=== PATIENT | female | born 1955 | race Caucasian/White ===

== ENCOUNTER → 2017-04-08 | Outpatient (CLI) | payer MEDICARE, MEDICAID ==
[~2017-04-08] MED LIST: AMBIEN10 M1 PO; AMITRIPTYLINE25 MG PO; ATIVAN0.5 MG PO; ATIVAN1 MG PO; BACTRIM DS 8001 TA1 PO; CARAFATE1 G1 PO; CYCLOBENZAPRINE10 MG PO; CYMBALTA60 MG PO; EFFEXOR XR150 M1 PO; EFFEXOR XR75 M1 PO; FENTORA BC; GABAPENTIN600 MG PO; KEFLEX500 MG PO; KLONOPIN1 M1 PO; LASIX20 MG PO; LEXAPRO20 MG PO; MEDROL DOSEPAK4 MG PO; METHADONE10 MG PO; MS CONTIN30 MG PO; PERCOCET 325 MG1 TA2 PO; PERCOCET 325 MG1 TA7 PO; POTASSIUM20 MEQ PO; PRAVASTATIN SOD10 MG PO; PROTONIX TR40 M1 PO; PROTONIX20 MG PO; Phenergan25 MG PO; REGLAN5 MG PO; SEROQUEL50 MG PO; SOMA350 MG PO; TIZANIDINE HCL4 MG PO; TRAMADOL50 MG PO; ZITHROMAX250 MG PO; ZOLOFT50 MG PO
== END | disposition home or self-care (01) ==
LOC: MAMMO 11:42
DX: Z12.31 Encounter for screening mammogram for malignant neoplasm of breast (principal)

== ENCOUNTER → 2021-10-25 | Outpatient (CLI) | payer OTHER, MEDICAID | END | disposition home or self-care (01) | LOC: COVID19 15:08 | PROVIDERS: ATTEND Family Medicine | DX: Z20.822 Contact with and (suspected) exposure to COVID-19 (principal) ==

== ENCOUNTER 2022-09-03 00:42 | Emergency (ER) | payer MEDICARE, MEDICAID ==
[~2022-09-03] VITALS: Ht 167.6 cm; Wt 86.2 kg
[2022-09-03] MEDS ORDERED: HYDROCODONE-AC1 EAC1 PO (04:30)
== END 2022-09-03 04:49 | disposition home or self-care (01) ==
LOC: ED 00:42
DX: S82.61XA Displaced fracture of lateral malleolus of right fibula, initial encounter for closed fracture (principal); Z88.1 Allergy status to other antibiotic agents; Z90.49 Acquired absence of other specified parts of digestive tract; Z90.13 Acquired absence of bilateral breasts and nipples; Z90.710 Acquired absence of both cervix and uterus; Z88.8 Allergy status to other drugs, medicaments and biological substances; F10.90 Alcohol use, unspecified, uncomplicated; W00.1XXA Fall from stairs and steps due to ice and snow, initial encounter; Y93.89 Activity, other specified; Y92.89 Other specified places as the place of occurrence of the external cause; Y99.8 Other external cause status

== ENCOUNTER → 2022-09-05 | Outpatient (CLI) | payer MEDICARE, MEDICAID ==
[~2022-09-05] MED LIST changes: +HYDROCODONE-AC1 EAC1 PO
== END | disposition home or self-care (01) ==
LOC: RAD 14:54
PROVIDERS: ATTEND Orthopaedic Surgery
DX: S82.891A Other fracture of right lower leg, initial encounter for closed fracture (principal); X58.XXXA Exposure to other specified factors, initial encounter; Y93.89 Activity, other specified; Y92.89 Other specified places as the place of occurrence of the external cause; Y99.8 Other external cause status

== ENCOUNTER → 2022-09-19 | Outpatient (CLI) | payer MEDICARE, MEDICAID | END | disposition home or self-care (01) | LOC: RAD 04:28 | PROVIDERS: ATTEND Orthopaedic Surgery | DX: S82.64XD Nondisplaced fracture of lateral malleolus of right fibula, subsequent encounter for closed fracture with routine healing (principal); S82.301D Unspecified fracture of lower end of right tibia, subsequent encounter for closed fracture with routine healing; X58.XXXD Exposure to other specified factors, subsequent encounter ==

== ENCOUNTER → 2022-10-10 | Outpatient (CLI) | payer MEDICARE, MEDICAID | END | disposition home or self-care (01) | LOC: ORTHO 04:09 | PROVIDERS: ATTEND Orthopaedic Surgery | DX: S82.301D Unspecified fracture of lower end of right tibia, subsequent encounter for closed fracture with routine healing (principal); X58.XXXD Exposure to other specified factors, subsequent encounter ==

== ENCOUNTER 2022-11-02 15:42 | Emergency (ER) | payer MEDICARE, MEDICAID ==
[~2022-11-02] VITALS: Ht 162.5 cm; Wt 81.6 kg
[~2022-11-02 15:42] MED LIST changes: -XARELTO15 M1 PO; -XARELTO20 M1 PO
[2022-11-02 16:42] LABS: HEMATOCRIT 37.6 % (37.0-47.0); MEAN CELL VOLUME 99.2 fl (81.0-99.0); MEAN CORPUSCULAR HGB 31.9 pg (27.0-31.0); MEAN CORPUSCULAR HGB CONC 32.2 g/dl (33.0-37.0); MEAN PLATELET VOLUME 9.8 fl (9.6-12.3); PLATELET COUNT AUTOMATED 294 10*3/uL (130-400); RED BLOOD COUNT 3.79 10*6/uL (4.10-5.10); RED CELL DISTRI WIDTH 14.9 % (0-14.5); WHITE BLOOD COUNT 30.1 10*3/uL (4.8-10.8)
[2022-11-02 16:43] LABS: MANUAL DIFF REFLEX YES
[2022-11-02 16:54] LABS: ACT PARTIAL THROMBO TIME 25.1 SECONDS (20.0-32.1)
[2022-11-02 16:59] LABS: ALKALINE PHOSPHATASE 84 U/L (46-116); BUN 16 mg/dl (9-23); CHLORIDE 104 mmol/L (98-107); POTASSIUM 3.9 mmol/L (3.4-5.1); SGPT/ALT 10 U/L (10-49); TOTAL PROTEIN 6.8 gm/dL (6.0-8.0)
[2022-11-02 17:18] LABS: BASOPHILS 1 % (0-1); PLATELET SUFFICIENCY NORMAL (NORMAL); TOTAL CELLS COUNTED 100 #CELLS
[2022-11-02 17:19] LABS: OVALOCYTES FEW; SPHEROCYTES FEW; STOMATOCYTE FEW
[2022-11-02] MEDS ORDERED: XARELTO15 M1 PO (17:40)
[2022-11-02] MEDS ORDERED: XARELTO20 M1 PO (17:40)
== END 2022-11-02 18:42 | disposition home or self-care (01) ==
LOC: ED 15:42
PROVIDERS: Nurse Practitioner Family
DX: I82.411 Acute embolism and thrombosis of right femoral vein (principal); F41.9 Anxiety disorder, unspecified; M79.7 Fibromyalgia; F31.9 Bipolar disorder, unspecified; Z88.1 Allergy status to other antibiotic agents; Z88.8 Allergy status to other drugs, medicaments and biological substances; Z90.710 Acquired absence of both cervix and uterus; Z98.890 Other specified postprocedural states; Z90.13 Acquired absence of bilateral breasts and nipples

== ENCOUNTER → 2022-11-02 | Outpatient (CLI) | payer MEDICARE, MEDICAID ==
[~2022-11-02] MED LIST changes: +XARELTO15 M1 PO; +XARELTO20 M1 PO
== END | disposition home or self-care (01) ==
LOC: ORTHO 00:06
PROVIDERS: ATTEND Orthopaedic Surgery
DX: S82.64XD Nondisplaced fracture of lateral malleolus of right fibula, subsequent encounter for closed fracture with routine healing (principal); S82.301D Unspecified fracture of lower end of right tibia, subsequent encounter for closed fracture with routine healing; I82.411 Acute embolism and thrombosis of right femoral vein; M20.11 Hallux valgus (acquired), right foot; X58.XXXD Exposure to other specified factors, subsequent encounter

== ENCOUNTER → 2022-11-30 | Outpatient (CLI) | payer OTHER, MEDICAID ==
[~2022-11-30] MED LIST changes: +XARELTO15 M1 PO; +XARELTO20 M1 PO
== END | disposition home or self-care (01) ==
LOC: ORTHO 10:35
PROVIDERS: ATTEND Orthopaedic Surgery
DX: S82.301D Unspecified fracture of lower end of right tibia, subsequent encounter for closed fracture with routine healing (principal); S82.64XD Nondisplaced fracture of lateral malleolus of right fibula, subsequent encounter for closed fracture with routine healing; X58.XXXD Exposure to other specified factors, subsequent encounter

== ENCOUNTER 2023-09-30 20:09 | Emergency (ER) | payer MEDICARE, MEDICAID ==
[~2023-09-30] VITALS: Ht 162.5 cm; Wt 87.1 kg
[2023-09-30 21:42] LABS: HEMATOCRIT 38.7 % (37.0-47.0); MEAN CORPUSCULAR HGB 33.5 pg (27.0-31.0); MEAN CORPUSCULAR HGB CONC 32.6 g/dl (33.0-37.0); MEAN PLATELET VOLUME 9.9 fl (9.6-12.3); PLATELET COUNT AUTOMATED 351 10*3/uL (130-400); RED BLOOD COUNT 3.76 10*6/uL (4.10-5.10); RED CELL DISTRI WIDTH 12.9 % (0-14.5)
[2023-09-30 21:44] LABS: MEAN CELL VOLUME 102.9 fl (81.0-99.0)
[2023-09-30 21:45] LABS: WHITE BLOOD COUNT 63.8 10*3/uL (4.8-10.8)
[2023-09-30 21:51] LABS: ACT PARTIAL THROMBO TIME 23.9 SECONDS (20.0-32.1)
[2023-09-30 21:53] LABS: MANUAL DIFF REFLEX YES
[2023-09-30 21:53] LABS: BILIRUBIN Negative (Negative); BLOOD 1+ (Negative); CLARITY Clear (Clear); COLOR Yellow (Yellow); GLUCOSE Negative (Negative); KETONE Negative (Negative); LEUKO ESTERASE Negative (Negative); NITRITE Negative (Negative); PH 5.5 (4.5-8.0); SPECIFIC GRAVITY <= 1.005 (1.001-1.030); UROBILINOGEN 0.2 E.U./dl (0.0-1.0)
[2023-09-30 22:03] LABS: ALKALINE PHOSPHATASE 101 U/L (46-116); CHLORIDE 107 mmol/L (98-107); LIPASE 27 U/L (12-53); POTASSIUM 4.2 mmol/L (3.4-5.1); SGPT/ALT 13 U/L (5-49); TOTAL PROTEIN 6.8 gm/dL (6.0-8.0)
[2023-09-30 22:08] LABS: BACTERIA TRACE; WBC 0-2 wbc/hpf (0-5)
[2023-09-30 22:11] LABS: BUN 11 mg/dl (9-23)
[2023-09-30 22:27] LABS: ATYPICAL LYMPHS 6 % (0-0); PLATELET SUFFICIENCY NORMAL (NORMAL); TOTAL CELLS COUNTED 100 #CELLS
== END 2023-09-30 23:49 | disposition home or self-care (01) ==
LOC: ED 20:09
PROVIDERS: Internal Medicine
DX: D72.829 Elevated white blood cell count, unspecified (principal); F41.9 Anxiety disorder, unspecified; M79.7 Fibromyalgia; F31.9 Bipolar disorder, unspecified; Z88.6 Allergy status to analgesic agent; Z88.8 Allergy status to other drugs, medicaments and biological substances; Z90.13 Acquired absence of bilateral breasts and nipples; Z90.710 Acquired absence of both cervix and uterus; Z98.890 Other specified postprocedural states

== ENCOUNTER → 2023-10-09 | Outpatient (CLI) | payer OTHER | END | disposition home or self-care (01) | LOC: RAD 15:09 | PROVIDERS: ATTEND Chiropractor | DX: M47.816 Spondylosis without myelopathy or radiculopathy, lumbar region (principal); M48.061 Spinal stenosis, lumbar region without neurogenic claudication; M47.812 Spondylosis without myelopathy or radiculopathy, cervical region ==

== ENCOUNTER 2024-04-23 20:26 | Inpatient (IN) | payer MEDICARE, OTHER ==
[~2024-04-23] VITALS: Ht 162.5 cm; Wt 85.0 kg
[2024-04-23 20:30] VITALS: BP 115/65
[2024-04-23] MEDS ORDERED: ELIQUIS5 M1 PO (20:33)
[2024-04-23 21:13] LABS: HEMATOCRIT 29.4 % (37.0-47.0); MEAN CORPUSCULAR HGB 31.4 pg (27.0-31.0); MEAN CORPUSCULAR HGB CONC 32.3 g/dl (33.0-37.0); MEAN PLATELET VOLUME 9.3 fl (9.6-12.3); PLATELET COUNT AUTOMATED 348 10*3/uL (130-400); RED BLOOD COUNT 3.03 10*6/uL (4.10-5.10); RED CELL DISTRI WIDTH 14.2 % (0-14.5)
[2024-04-23 21:15] LABS: MANUAL DIFF REFLEX YES; WHITE BLOOD COUNT 41.4 10*3/uL (4.8-10.8)
[2024-04-23] MEDS ORDERED: ACETAMINOPHEN 325 MG TAB PO ONE (21:25)
[2024-04-23 21:32] LABS: BUN 13 mg/dl (9-23); CHLORIDE 103 mmol/L (98-107); POTASSIUM 3.9 mmol/L (3.4-5.1)
[2024-04-23 21:57] LABS: PLATELET SUFFICIENCY NORMAL (NORMAL); TOTAL CELLS COUNTED 100 #CELLS
[2024-04-23 21:59] LABS: ROULEAUX SLIGHT
[2024-04-23 22:02] LABS: BILIRUBIN Negative (Negative); BLOOD 3+ (Negative); CLARITY Cloudy (Clear); COLOR Dark Yellow (Yellow); GLUCOSE Negative (Negative); KETONE 3+ (Negative); LEUKO ESTERASE Trace (Negative); NITRITE Negative (Negative); SPECIFIC GRAVITY >= 1.030 (1.001-1.030)
[2024-04-23 22:09] LABS: BACTERIA 1+; FINE GRANULAR CAST 0-2; MUCOUS 1+; RBC 31-40 rbc/hpf (0-2); YEAST TRACE
[2024-04-23] MEDS ORDERED: SODIUM CHLORIDE 0.9% 1,000 ML IV SCH (23:55)
[2024-04-24] VITALS (7 sets, daily range): BP systolic 92–111; BP diastolic 46–70
[2024-04-24] MEDS ORDERED: Doxycycline Hyclate 100 MG in SODIUM CHLORIDE 0.9% 250 ML IV ONE (00:30)
[2024-04-24] MEDS ORDERED: Ceftriaxone Sodium 1 GM/10 ML SYR IV ONE (00:30)
[2024-04-24] MEDS ORDERED: Acetaminophen/Hydrocodone 5 MG/325 MG TABLET PO PRN (02:00)
[2024-04-24] MEDS ORDERED: ACETAMINOPHEN 650 MG SUPP R PRN (02:00)
[2024-04-24] MEDS ORDERED: Ondansetron Hydrochloride 4 MG/2 ML VIAL IV PRN (02:00)
[2024-04-24] MEDS ORDERED: BISACODYL 10 MG SUPP R PRN (02:00)
[2024-04-24] MEDS ORDERED: ACETAMINOPHEN 325 MG TAB PO PRN (02:00)
[2024-04-24] MEDS ORDERED: TEMAZEPAM 15 MG CAP PO PRN (02:00)
[2024-04-24] MEDS ORDERED: Magnesium Hydroxide 30 ML UDC PO PRN (02:00)
[2024-04-24] MEDS ORDERED: MORPHINE Sulfate 2 MG/ML SYR IV PRN (02:00)
[2024-04-24] MEDS ORDERED: SODIUM CHLORIDE 0.9% 1,000 ML IV ONE (02:55)
[2024-04-24 06:29] LABS: HEMATOCRIT 27.4 % (37.0-47.0); MEAN CELL VOLUME 97.5 fl (81.0-99.0); MEAN CORPUSCULAR HGB 30.6 pg (27.0-31.0); MEAN CORPUSCULAR HGB CONC 31.4 g/dl (33.0-37.0); MEAN PLATELET VOLUME 9.4 fl (9.6-12.3); PLATELET COUNT AUTOMATED 373 10*3/uL (130-400); RED BLOOD COUNT 2.81 10*6/uL (4.10-5.10); RED CELL DISTRI WIDTH 14.3 % (0-14.5)
[2024-04-24 06:37] LABS: MANUAL DIFF REFLEX YES; WHITE BLOOD COUNT 43.1 10*3/uL (4.8-10.8)
[2024-04-24 06:40] LABS: ACT PARTIAL THROMBO TIME 33.5 SECONDS (20.0-32.1)
[2024-04-24 06:59] LABS: ALKALINE PHOSPHATASE 127 U/L (46-116); BUN 13 mg/dl (9-23); CHLORIDE 110 mmol/L (98-107); CHOLESTEROL 86 mg/dL (<200); FREE T4 0.94 ng/dl (0.89-1.76); LDL CHOLESTEROL 40 mg/dL (9-159); POTASSIUM 3.9 mmol/L (3.4-5.1); SGPT/ALT 19 U/L (5-49); TOTAL PROTEIN 6.2 gm/dL (6.0-8.0); TRIGLYCERIDES 104 mg/dl (<150)
[2024-04-24 07:47] LABS: PLATELET SUFFICIENCY NORMAL (NORMAL); TOTAL CELLS COUNTED 100 #CELLS
[2024-04-24 07:48] LABS: ROULEAUX MODERATE
[2024-04-24 08:36] LABS: VITAMIN D, 25-HYDROXY 20.6 ng/mL (30-100)
[2024-04-24] MEDS ORDERED: Enoxaparin Sodium 40 MG/0.4 ML SYR SC SCH (10:00)
[2024-04-24] MEDS ORDERED: Ceftriaxone Sodium 2 GM in SYRINGE INFUSION 20 ML IV SCH (10:00)
[2024-04-24] MEDS ORDERED: Piperacillin Sodium/Tazobact 50 ML IV ONE (10:50)
[2024-04-24] MEDS ORDERED: Vancomycin Hydrochloride 1,000 MG in SODIUM CHLORIDE 0.9% 250 ML IV SCH (10:50)
[2024-04-24] MEDS ORDERED: Doxycycline Hyclate 100 MG in SODIUM CHLORIDE 0.9% 250 ML IV SCH (12:00)
[2024-04-24] MEDS ORDERED: POTASSIUM PHOSPHATE 30 MMOL in SODIUM CHLORIDE 0.9% 500 ML IV ONE (12:30)
[2024-04-24] MEDS ORDERED: VANCOMYCIN/WATER FOR INJ (PEG) 250 ML IV SCH (13:00)
[2024-04-24] MEDS ORDERED: Benzocaine/Menthol 1 LOZ LOZENGE PO PRN (13:10)
[2024-04-24] MEDS ORDERED: ACETAMINOPHEN 325 MG TAB PO ONE (14:55)
[2024-04-24] MEDS ORDERED: Phosphorus/Potassium 1.45 GM PACKET PO SCH (17:00)
[2024-04-24] MEDS ORDERED: Ceftriaxone Sodium 1 GM in SYRINGE INFUSION 10 ML IV SCH (22:00)
[2024-04-25] VITALS: BP 103/48; BP 117/64
[2024-04-25 03:07] LABS: HEMOGOLBIN A1C 6.1 % (4.8-5.6)
[2024-04-25 06:45] LABS: RETICULOCYTE % 0.78 % (0.50-2.50)
[2024-04-25 08:00] VITALS: BP 105/63
[2024-04-25 09:51] LABS: HEMATOCRIT 25.8 % (37.0-47.0); MEAN CELL VOLUME 99.2 fl (81.0-99.0); MEAN CORPUSCULAR HGB 31.5 pg (27.0-31.0); MEAN CORPUSCULAR HGB CONC 31.8 g/dl (33.0-37.0); MEAN PLATELET VOLUME 9.5 fl (9.6-12.3); PLATELET COUNT AUTOMATED 319 10*3/uL (130-400); RED CELL DISTRI WIDTH 14.7 % (0-14.5); WHITE BLOOD COUNT 33.5 10*3/uL (4.8-10.8)
[2024-04-25] MEDS ORDERED: LORazepam 1 MG TAB PO SCH (10:00)
[2024-04-25] MEDS ORDERED: Sertraline Hydrochloride 50 MG TAB PO SCH (10:00)
[2024-04-25] MEDS ORDERED: QUETIAPINE FUMARATE 50 MG TAB PO SCH (10:00)
[2024-04-25 10:24] LABS: MANUAL DIFF REFLEX YES
[2024-04-25 10:33] LABS: PLATELET SUFFICIENCY NORMAL (NORMAL); ROULEAUX MODERATE; TOTAL CELLS COUNTED 100 #CELLS
[2024-04-25 10:34] LABS: ACANTHOCYTES FEW; BURR CELLS FEW; SCHISTOCYTES FEW
[2024-04-25 12:00] VITALS: BP 130/60; BP 93/58
[2024-04-25 16:00] VITALS: BP 114/56
[2024-04-25] MEDS ORDERED: LORazepam 1 MG TAB PO PRN (17:20)
[2024-04-25 20:00] VITALS: BP 121/51
[2024-04-25] MEDS ORDERED: Albuterol Sulf/Ipratropium 3 ML VIAL NEB PRN (20:35)
[2024-04-25] MEDS ORDERED: Dextromethorphan Hydrobromid 1 TAB TAB PO SCH (22:00)
[2024-04-26] VITALS: BP 97/46
[2024-04-26] MEDS ORDERED: Nicotine 21 MG PATCH T SCH (00:25)
[2024-04-26 05:57] LABS: BUN 10 mg/dl (9-23); CHLORIDE 107 mmol/L (98-107); POTASSIUM 3.9 mmol/L (3.4-5.1)
[2024-04-26 06:16] LABS: HEMATOCRIT 25.2 % (37.0-47.0); MEAN CELL VOLUME 100.4 fl (81.0-99.0); MEAN CORPUSCULAR HGB 31.5 pg (27.0-31.0); MEAN CORPUSCULAR HGB CONC 31.3 g/dl (33.0-37.0); MEAN PLATELET VOLUME 9.8 fl (9.6-12.3); PLATELET COUNT AUTOMATED 348 10*3/uL (130-400); RED BLOOD COUNT 2.51 10*6/uL (4.10-5.10); RED CELL DISTRI WIDTH 14.6 % (0-14.5); WHITE BLOOD COUNT 29.3 10*3/uL (4.8-10.8)
[2024-04-26 06:26] LABS: MANUAL DIFF REFLEX YES
[2024-04-26 07:06] LABS: TOTAL PROTEIN, SERUM 4.7 g/dL (6.0-8.5)
[2024-04-26 07:09] LABS: TOTAL CELLS COUNTED 100 #CELLS
[2024-04-26 07:10] LABS: PLATELET SUFFICIENCY NORMAL (NORMAL); POLYCHROMASIA SLIGHT
[2024-04-26 07:11] LABS: ROULEAUX SLIGHT
[2024-04-26 08:00] VITALS: BP 98/50
[2024-04-26] MEDS ORDERED: VIBRAMYCIN HYC100 MG PO (11:31)
[2024-04-26] MEDS ORDERED: FEROSUL325 MG PO (11:32)
[2024-04-27 13:06] LABS: A/G RATIO 0.9 (0.7-1.7); ALBUMIN 2.2 g/dL (2.9-4.4); ALPHA-1-GLOBULIN 0.5 g/dL (0.0-0.4); BETA GLOBULIN 0.7 g/dL (0.7-1.3); GAMMA GLOBULIN 0.3 g/dL (0.4-1.8); GLOBULIN, TOTAL 2.5 g/dL (2.2-3.9)
== END 2024-04-26 12:24 | disposition home or self-care (01) | DRG 871 ==
LOC: ED 20:26 → 4E 04-24 01:24 → EDHOLD 04-24 01:24 → 4E 04-24 13:35
PROVIDERS: Emergency Medicine; Internal Medicine; Physician Assistant; Student in an Organized Health Care Education/Training Program; ADMIT Internal Medicine; ATTEND Internal Medicine
DX: A41.9 Sepsis, unspecified organism (principal); J18.9 Pneumonia, unspecified organism; J96.00 Acute respiratory failure, unspecified whether with hypoxia or hypercapnia; E87.1 Hypo-osmolality and hyponatremia; J98.11 Atelectasis; R65.20 Severe sepsis without septic shock; R73.9 Hyperglycemia, unspecified; E78.5 Hyperlipidemia, unspecified; I10 Essential (primary) hypertension; R31.9 Hematuria, unspecified; E83.39 Other disorders of phosphorus metabolism; F17.200 Nicotine dependence, unspecified, uncomplicated; Z85.6 Personal history of leukemia; Z79.899 Other long term (current) drug therapy; Z79.01 Long term (current) use of anticoagulants; Z79.2 Long term (current) use of antibiotics; Z86.718 Personal history of other venous thrombosis and embolism; Z88.1 Allergy status to other antibiotic agents; Z88.8 Allergy status to other drugs, medicaments and biological substances; Z91.09 Other allergy status, other than to drugs and biological substances; Z90.49 Acquired absence of other specified parts of digestive tract; Z90.710 Acquired absence of both cervix and uterus; Z83.3 Family history of diabetes mellitus; Z80.8 Family history of malignant neoplasm of other organs or systems

== ENCOUNTER → 2024-05-20 | Outpatient (CLI) | payer MEDICARE, OTHER ==
[~2024-05-20] MED LIST changes: +ELIQUIS5 M1 PO; +FEROSUL325 MG PO; +IOHEXOL 300 MG/ML 100 ML VIAL IV ONE; +IOHEXOL 300 MG/ML 100 ML VIAL ONE; +VIBRAMYCIN HYC100 MG PO
== END | disposition home or self-care (01) ==
LOC: CT 14:45
PROVIDERS: ATTEND Family Medicine
DX: K76.0 Fatty (change of) liver, not elsewhere classified (principal); K57.30 Diverticulosis of large intestine without perforation or abscess without bleeding; R91.1 Solitary pulmonary nodule; N28.1 Cyst of kidney, acquired; K76.89 Other specified diseases of liver; I70.0 Atherosclerosis of aorta

== ENCOUNTER → 2024-06-08 | Day surgery (SDC) | payer MEDICARE, OTHER ==
[~2024-06-08] VITALS: Ht 162.5 cm; Wt 79.4 kg
[~2024-06-08] MED LIST changes: -IOHEXOL 300 MG/ML 100 ML VIAL IV ONE; -IOHEXOL 300 MG/ML 100 ML VIAL ONE; +LIPITOR40 MG PO; +Lactated Ringer's Solution 1,000 ML IV ONE; +Lactated Ringer's Solution 1,000 ML IV SCH; +Lidocaine Hydrochloride 2% 5 ML SDV IV ONE; +PROPOFOL 200 MG/20 ML VIAL IV ONE; +VISTARIL25 MG PO
[2024-06-08 06:56] VITALS: BP 117/75
[2024-06-08 08:08] VITALS: BP 119/62
[2024-06-08 08:23] VITALS: BP 98/60
[2024-06-08 08:38] VITALS: BP 100/59
== END | disposition home or self-care (01) ==
LOC: SDC 06-04 08:00
PROVIDERS: ATTEND Surgery
DX: K59.00 Constipation, unspecified (principal); D12.3 Benign neoplasm of transverse colon; D12.8 Benign neoplasm of rectum; K64.8 Other hemorrhoids; I10 Essential (primary) hypertension; E78.5 Hyperlipidemia, unspecified; F41.9 Anxiety disorder, unspecified; F32.A Depression, unspecified; M19.90 Unspecified osteoarthritis, unspecified site; Z86.010 Personal history of colon polyps; Z90.49 Acquired absence of other specified parts of digestive tract; Z90.710 Acquired absence of both cervix and uterus; Z79.899 Other long term (current) drug therapy; Z88.2 Allergy status to sulfonamides; Z88.3 Allergy status to other anti-infective agents; Z83.3 Family history of diabetes mellitus; Z82.49 Family history of ischemic heart disease and other diseases of the circulatory system